=== PATIENT | male | born 1940 | race African-American/Black ===

== ENCOUNTER 2019-12-31 05:42 | Emergency (ER) | payer MEDICARE, OTHER ==
[2019-12-31 06:16] LABS: ABSOLUTE EOSINOPHILS # (AUTO) 0.3 10^3/uL (0.0-0.6); ABSOLUTE LYMPHOCYTES (AUTO) 1.2 10^3/uL (0.5-4.7); ABSOLUTE MONOCYTES (AUTO) 0.6 10^3/uL (0.1-1.4); ABSOLUTE NEUT (AUTO) 4.4 10^3/uL (1.7-8.2); BASOPHILS % (AUTO) 0.6 % (0-2); EOSINOPHILS % (AUTO) 4.2 % (0-6); HEMATOCRIT 30.6 % (37.9-51.0); HEMOGLOBIN 10.1 g/dL (13.5-17.0); LYMPHOCYTES % (AUTO) 18.4 % (13-45); MEAN CORPUSCULAR HGB CONC 33.1 g/dL (32.0-36.0); MEAN CORPUSCULAR VOLUME 94 fl (80-97); MONOCYTES % (AUTO) 9.1 % (3-13); PLATELET COUNT 157 10^3/uL (150-450); RED BLOOD COUNT 3.27 10^6/uL (4.35-5.55); RED CELL DISTRIBUTION WIDTH 15.3 % (11.5-14.0); SEGMENTED NEUTROPHILS % (AUTO) 67.7 % (42-78); TOTAL CELLS COUNTED % (AUTO) 100 %; WHITE BLOOD COUNT 6.5 10^3/uL (4.0-10.5)
[2019-12-31 06:35] LABS: ALBUMIN 3.8 g/dL (3.5-5.0); ALKALINE PHOSPHATASE 97 U/L (38-126); ANION GAP 12 (5-19); ASPARTATE AMINO TRANSFERASE 82 U/L (17-59); BILIRUBIN,DIRECT 0.3 mg/dL (0.0-0.4); BILIRUBIN,TOTAL 0.8 mg/dL (0.2-1.3); BLOOD UREA NITROGEN 20 mg/dL (7-20); CALCIUM 9.3 mg/dL (8.4-10.2); CARBON DIOXIDE 26 mmol/L (22-30); CHLORIDE 104 mmol/L (98-107); CREATINE KINASE 91 U/L (55-170); GLUCOSE 91 mg/dL (75-110); TOTAL PROTEIN 7.1 g/dL (6.3-8.2)
[2019-12-31 06:39] LABS: POTASSIUM 2.9 mmol/L (3.6-5.0)
[2019-12-31 06:45] LABS: CREATINE KINASE MB 0.95 ng/mL (<4.55); TROPONIN I 0.015 ng/mL
--- NOTE | 2019-12-31 07:12 | ER Document Report ---
ED General - General Chief Complaint: Chest Pain Stated Complaint: CHEST PAIN Time Seen by Provider: 12/31/19 06:28 Primary Care Provider: ADRI CEBALLOS MD [NO LOCAL MD] - Follow up as needed ASHLEY YANG [Primary Care Provider] - Follow up as needed TRAVEL OUTSIDE OF THE [place] IN LAST 30 DAYS: No - HPI Notes: Chief complaint: Right side discomfort History of present illness: 79-year-old male halfway resident followed by Dr. Ceballos with history of chronic atrial fibrillation presents with several days history intermittent nonexertional sharp cramping discomfort right anterolateral chest wall near the costal margin. Denies trauma. Denies cough, sputum production or hemoptysis. Denies fever chills. Denies dyspnea. Denies any known history of thromboembolic disease. Says he is fully compliant with previously prescribed medications. Former smoker. History of CAD. History of hypertension. History of diabetes mellitus type 2. Lipid status unknown. Family history positive for CAD. Family history negative for thromboembolic disorder. - Related Data Allergies/Adverse Reactions: No Known Drug Allergies Allergy (Verified 12/31/19 06:11) Past Medical History - General Information source: Patient, [facility] Records - Social History Smoking Status: Former Smoker Frequency of alcohol use: None Drug Abuse: None Lives with: [facility]-Way Family History: Reviewed & Not Pertinent - Past Medical History Cardiac Medical History: Reports: Hx Coronary Artery Disease, Hx Heart Attack - 1987, Hx Hypertension Pulmonary Medical History: Denies: Hx Asthma, Hx Bronchitis, Hx COPD, Hx Pneumonia Neurological Medical History: Denies: Hx Cerebrovascular Accident, Hx Seizures Endocrine Medical History: Reports: Hx Diabetes Mellitus Type 2 Musculoskeletal Medical History: Reports Hx Arthritis - STATES ALL OVER Past Surgical History: Denies: Hx Pacemaker - Immunizations Hx Diphtheria, Pertussis, Tetanus Vaccination: Yes Review of Systems - Review of Systems Notes: Constitutional: Negative for fever. HENT: Negative for sore throat. Eyes: Negative for visual changes. Cardiovascular: As per HPI. Respiratory: As per HPI. Gastrointestinal: Negative for abdominal pain, vomiting or diarrhea. Genitourinary: Negative for dysuria. Musculoskeletal: Negative for back pain. Denies pain or swelling of legs. Skin: Negative for rash. Neurological: Negative for headaches, weakness or numbness. 10 point ROS negative except as marked above and in HPI. Physical Exam - Vital signs Vitals: Temp Pulse Resp BP Pulse Ox 98.3 F 73 19 112/54 L 100 12/31/19 05:46 12/31/19 05:46 12/31/19 05:46 12/31/19 05:46 12/31/19 05:46 - Notes Notes: GENERAL: Slender elderly male appearing in no acute distress. SKIN: Good turgor no rashes. HEAD: Normocephalic atraumatic. EYES: Bilateral arcus senilis. PERRLA. EOMI. Conjunctivae and sclerae clear. EARS: Moderate bilateral hearing impairment. CANALS AND TMS CLEAR. NOSE: CLEAR. MOUTH: Moist mucosa. Good dentition. No stridor or edema. No drooling. NECK: Supple. No masses or thyromegaly. No adenopathy. Carotids 2+ without bruits. No JVD. BACK: Symmetrical without tenderness. CHEST: Tenderness lower anterior chest wall area on the right. No palpable step-off or crepitus. No visible ecchymoses. Respirations unlabored. Breath sounds clear and symmetrical. HEART: Controlled rate with irregularly irregular rhythm. No murmur gallop or rub. ABDOMEN: Soft nontender without masses, organomegaly or rebound. Bowel sounds normally active. No bruits. GENITALIA: Deferred. EXTREMITIES: No edema. No calf tenderness. Cap refill less than 1.5 seconds. Dorsalis pedis and posterior tibial pulses 3+ and symmetrical. NEUROLOGICAL: GCS 15. Alert and oriented x3. Normal gait. Fluent speech. Cranial nerves II through XII intact. Sensorimotor and cerebellar normal. Normal tone. PSYCHIATRIC: Appropriate affect. Course - Re-evaluation Re-evalutation: 12/31/19 11:04 Patient has atypical chest pain which sounds more musculoskeletal in origin. We note that he has a low potassium and low magnesium which is probably responsible for this. I am giving him some oral potassium and IV infusion of both potassium and magnesium. His troponin is normal. His EKG did not show any acute changes. D-dimer was mildly elevated. We did a CTA of the chest negative for PE. 12/31/19 15:13 Patient's initial potassium was about 2.9 and his mag was also low at 1.7. We gave him 20 mEq of IV potassium and 20 mEq of oral potassium. 12/31/19 15:15 Patient's repeat potassium is now 3.2. I think he is stable to receive another dose of oral potassium and then go back to the halfway and remain on 20 mEq twice daily for the next several days along with some additional oral magnesium supplementation. He will need to have his potassium rechecked within the next 24 hours at the facility. Findings, clinical impression and plan of treatment have been discussed with pat ient/family. Understanding of current findings and recommendations has been acknowledged by them and there is agreement regarding disposition and follow-up. - Vital Signs Vital signs: Temp Pulse Resp BP Pulse Ox 98.3 F 73 22 H 120/74 100 12/31/19 05:46 12/31/19 05:46 12/31/19 15:00 12/31/19 15:00 12/31/19 15:00 - Laboratory Result Diagrams: 12/31/19 05:56 12/31/19 14:25 Laboratory results interpreted by me: 12/31/19 12/31/19 12/31/19 05:56 05:56 05:56 RBC 3.27 L Hgb 10.1 L Hct 30.6 L RDW 15.3 H D-Dimer 0.71 H Potassium 2.9 L* AST 82 H ALT 61 H 12/31/19 14:25 RBC Hgb Hct RDW D-Dimer Potassium 3.2 L AST ALT - EKG Interpretation by Me Additional EKG results interpreted by me: 12/31/19 07:13 Twelve-lead EKG reviewed by me contemporaneously: 0555 hrs. Indication for study: Chest pain Rhythm: Atrial fibrillation Rate: Ventricular rate 60 Intervals: Normal QRS and QT intervals QRS axis: -[address]/T wave changes: None Comparison with prior tracing: Unchanged from multiple prior tracings Interpretation: Chronic atrial fibrillation with controlled ventricular rate Discharge - Discharge Clinical Impression: Chest wall pain, Hypokalemia, Hypomagnesemia Condition: Stable Disposition: HOME-SNF (ED ONLY) Instructions: Chest Wall Pain ([facility]) Additional Instructions: Hypokalemia You have an abnormally decreased level of serum potassium. Hypokalemia may cause weakness, fatigue, or heart rhythm abnormalities. Sometimes there are no symptoms at all. Usually, low serum potassium is due to taking diuretics (water pills). It can also be due to excessive vomiting or diarrhea. If no obvious cause is evident, further evaluation will be necessary. Treatment is usually oral potassium supplements. Take these exactly as prescribed. You may also want to select foods which are naturally high in potassium -- fruits (such as bananas, cantaloupe, grapes, oranges, prunes, tomatoes), fresh vegetables (potatoes, spinach, beans, peas), orange or tomato juice, tomato pasta sauce, milk, fish (halibut, tuna, salmon, babs) A follow-up blood test is usually performed to assure that the potassium is returning to normal. Call the physician if you suffer severe weakness, muscle twitching or cramping, palpitations (pounding or irregular heartbeat), or any other new or alarming symptoms. Take prescribed medications as directed. You will need to have your potassium level rechecked within the next 24 hours by your primary care provider. Prescriptions: Magnesium Oxide [Mag-Ox 400 mg Tablet] 400 mg PO DAILY #30 tablet Potassium Chloride 20 meq PO BID 7 Days #14 [email or web address] Referrals: ASHLEY YANG [Primary Care Provider] - Follow up as needed ADRI CEBALLOS MD [NO LUKASZ ZHOU] - Follow up as needed
--- NOTE | 2019-12-31 09:40 | EKG REPORT ---
SEVERITY:- ABNORMAL ECG - ATRIAL FIBRILLATION INFERIOR INFARCT, AGE INDETERMINATE LATERAL INFARCT, AGE INDETERMINATE ANTERIOR INFARCT, AGE INDETERMINATE : Confirmed by: Obed Louise MD 31-Dec-2019 09:40:37
--- NOTE | 2019-12-31 10:16 | RADIOLOGY REPORT (SQ) ---
EXAM DESCRIPTION: CTA CHEST IMAGES COMPLETED DATE/TIME: 12/31/2019 9:53 am REASON FOR STUDY: CP elevated d-dimer COMPARISON: None. TECHNIQUE: CT scan of the chest performed using helical scanning technique with dynamic intravenous contrast injection. Images reviewed with lung, soft tissue and bone windows. Reconstructed coronal and sagittal MPR images reviewed. Additional 3 dimensional post-processing performed to develop Maximal Intensity Projection images (MT P). All images stored on PACS. All CT scanners at this facility use dose modulation, iterative reconstruction, and/or weight based d osing when appropriate to reduce radiation dose to as low as reasonably achievable (ALARA). [facility]: Dose Right [facility]: CareDose [facility]: Dose Right [facility]: Teradose 4D [facility]: Uplogix CONTRAST TYPE AND DOSE: contrast/concentration: Isovue 350.00 mmol/ml; Total Contrast Delivered: 60. 0 ml; Total Saline Delivered: 64.9 ml Contrast bolus optimized for the pulmonary arteries. Not diagnostic for the aorta. RENAL FUNCTION: Creatinine 1.10 RADIATION DOSE: CT Rad equipment meets quality standard of care and radiation dose reduction techniq ues were employed. CTDIvol: 9.9 - 19.0 mGy. DLP: 662 mGy-cm. . LIMITATIONS: None. FINDINGS: LUNGS AND PLEURA: No masses, infiltrates, or pneumothorax. No pleural effusions or pleura l calcifications. AORTA AND GREAT VESSELS: Minimal linear right basilar opacity, likely atelectasis or scarring. No ad ditional airspace disease. 5 mm nodular opacity along the right minor fissure, likely intrapulmonary lymph node. No additional discrete pulmonary masses. No pleural effusion or pneumothorax. HEART: Cardiomegaly. Scattered three-vessel coronary atherosclerosis. No pericardial effusion. PULMONARY ARTERIES: No emboli visualized in the main pulmonary arteries or the segmental branches. HILAR AND MEDIASTINAL STRUCTURES: No identified masses or abnormal nodes. HARDWARE: None in the chest. UPPER ABDOMEN: No significant findings. Limited exam. THYROID AND OTHER SOFT TISSUES: No masses. No adenopathy. BONES: No acute or significant finding. 3D MIPS: Confirm above findings. OTHER: No other significant finding. IMPRESSION: 1. No evidence of pulmonary embolus or other acute intrathoracic process. 2. Cardiomegaly with scattered coronary atherosclerosis. COMMENT: Quality ID # [id number]: Final reports with documentation of one or more dose reduction techniques (e.g., Automated exposure control, adjustment of the mA and/or kV according to patient size, use of iterative reconstruction technique) TECHNICAL DOCUMENTATION: JOB ID: [id number] 2010 [employer]- All Rights Reserved Reading location - IP/workstation name: [email or web address]
[2019-12-31] MEDS ORDERED: POTASSI CL 20 MEQ/50 ML RIDER 20 MEQ/50 ML RTUPB IV ONE (11:00)
[2019-12-31] MEDS ORDERED: POTASSIUM CHLORIDE 10 MEQ TABLET.ER PO ONE ×2 (11:00→15:12)
[2019-12-31] MEDS ORDERED: MAGNESIUM SULFATE/D5W 1 GM/100 ML RTUPB IV ONE (11:01)
[2019-12-31 16:03] VITALS: BP 111/68
== END 2019-12-31 15:52 ==
LOC: ER 05:42
DX: R07.89 Other chest pain (principal); E87.6 Hypokalemia; E83.42 Hypomagnesemia; R79.89 Other specified abnormal findings of blood chemistry; I25.10 Atherosclerotic heart disease of native coronary artery without angina pectoris; I48.20 Chronic atrial fibrillation, unspecified; I10 Essential (primary) hypertension; I25.2 Old myocardial infarction; E11.9 Type 2 diabetes mellitus without complications; Z87.891 Personal history of nicotine dependence; Z82.49 Family history of ischemic heart disease and other diseases of the circulatory system
CPT/HCPCS: 93005; 99285; 96365; 96366; 96368; 36415; 82553; 82550; 83735; 84132; 85025; 80053; 84484; 85379; 71275; 93010; J3475; J3480; A9270